=== PATIENT | female | born 1965 | race Caucasian/White ===

== ENCOUNTER 2017-01-20 05:17 | Inpatient (IN) | payer BC ==
[2017-01-20] MEDS ORDERED: ASPIRIN 81 MG CHEW PO STA (05:39)
[2017-01-20 05:54] LABS: Basophils # (A) 0.1 k/uL (0-0.2); Basophils % (A) 1 %; CHCM 33.2; Eosinophils # (A) 0.4 k/uL (0-0.7); Eosinophils % (A) 4 %; HCT 45.8 % (34.0-46.0); HDW 2.46; Luc # (Auto) 0.18; Luc % (Auto) 2; Lymphocytes # (A) 2.2 k/uL (1.0-4.8); Lymphocytes % (A) 20 %; MCH 28.7 pg (25.0-35.0); MCHC 32.6 g/dL (31.0-37.0); MCV 87.9 fL (80.0-100.0); Mean Platelet Volume 7.6; Monocytes # (A) 0.6 k/uL (0-1.0); Monocytes % (A) 6 %; Neutrophils # (A) 7.7 k/uL (1.3-7.7); Neutrophils % (A) 69 %; RBC 5.22 m/uL (3.80-5.40); RDW 13.8 % (11.5-15.5); WBC 11.2 k/uL (3.8-10.6); WBC (Perox) 11.02
[2017-01-20 06:03] LABS: ALT 49 U/L (9-52); AST 30 U/L (14-36); Alkaline Phosphatase 89 U/L (38-126); Anion Gap 11 mmol/L; Blood Urea Nitrogen 14 mg/dL (7-17); Calcium 9.3 mg/dL (8.4-10.2); Carbon Dioxide 23 mmol/L (22-30); Chloride 107 mmol/L (98-107); Glucose 109 mg/dL (74-99); Non-African American GFR(MDRD) >60 (>60 ml/min/1.73 sqM); Potassium 4.7 mmol/L (3.5-5.1); Sodium 141 mmol/L (137-145); Total Bilirubin 0.5 mg/dL (0.2-1.3); Total Protein 7.1 g/dL (6.3-8.2)
[2017-01-20] MEDS ORDERED: cloNIDine HCL 0.1 MG TAB PO STA ×2 (06:04→06:10)
[2017-01-20] MEDS ORDERED: KETOROLAC 30 MG/ML 1 ML VIAL IVP STA (06:10)
[2017-01-20 06:15] LABS: Partial Thromboplastin Time 23.4 sec (22.0-30.0); Prothrombin Time 10.2 sec (9.0-12.0)
[2017-01-20] MEDS: ONDANSETRON 4 MG/2 ML VIAL IVP STA (06:16)
--- NOTE | 2017-01-20 06:16 | ED ---
Chest Pain HPI - General Source: patient Mode of arrival: ambulatory Limitations: no limitations - History of Present Illness MD Complaint: chest pain Onset/Timin -: hour(s) Onset: during rest Pain Location: substernal Pain Radiation: back Severity: moderate Quality: aching, other (Like gas) Consistency: constant Improves With: nothing Worsens With: nothing Anginal Symptoms: nausea, vomiting Treatments Prior to Arrival: none <Dwight Brothers - Last Filed: 01/20/17 07:56> <Ino Rivera - Last Filed: 01/20/17 09:56> - General Chief Complaint: Chest Pain Stated Complaint: Chest Pain Time Seen by Provider: 01/20/17 05:26 - History of Present Illness Initial Comments: This patient is a 51-year-old woman who presents to be evaluated for substernal and epigastric pain that does radiate to her back. The pain came on yesterday late morning or early afternoon. She states that it feels like a gas pressure like she needed to belch. She had eaten pizza prior to this. The patient states that she comes in to be evaluated because the feeling has prevented her from sleeping tonight. She took some Tums, and she also took some other antacid and had vomiting after both of these medications. She denies other associated symptoms. Patient denies diaphoresis, dyspnea, palpitations, lightheadedness or syncope. (Dwight Brothers) - Related Data Home Medications Medication Instructions Recorded Confirmed No Known Home Medications [No 01/20/17 01/20/17 Known Home Medications] Allergies Allergy/AdvReac Type Severity Reaction Status Date / Time acetaminophen [From [place]] AdvReac Nausea & Verified 01/20/17 08:35 Vomiting hydrocodone [From [place]] AdvReac Nausea & Verified 01/20/17 08:35 Vomiting Review of Systems ROS Other: All systems not noted in ROS Statement are negative. Constitutional: Denies: fever, chills Respiratory: Denies: cough, dyspnea Cardiovascular: Reports: as per HPI, chest pain. Denies: palpitations, orthopnea, edema, syncope Gastrointestinal: Reports: abdominal pain, nausea, vomiting. Denies: diarrhea, constipation, hematemesis Genitourinary: Denies: dysuria Musculoskeletal: Denies: back pain Skin: Denies: rash Neurological: Denies: headache, weakness, numbness <Dwight Brothers - Last Filed: 01/20/17 07:56> ROS Other: All systems not noted in ROS Statement are negative. <Ino Rivera - Last Filed: 01/20/17 09:56> ROS Statement: Those systems with pertinent positive or pertinent negative responses have been documented in the HPI. EKG Findings - EKG Results: EKG: interpreted by ERMD, sinus rhythm, normal axis, normal QRS, normal ST/T, no acute changes EKG shows: bradycardia (Rate approximately 57 bpm) <Carlos EnriquecoryDwight Last Filed: 01/20/17 07:56> Past Medical History Past Medical History: GERD/Reflux History of Any Multi-Drug Resistant Organisms: None Reported Past Surgical History: Section Additional Past Surgical History / Comment(s): c-sect x 3 Past Psychological History: No Psychological Hx Reported Smoking Status: Never smoker Past Alcohol Use History: Rare Past Drug Use History: None Reported <Dwight Brothers - Last Filed: 01/20/17 07:56> General Exam Limitations: no limitations General appearance: alert, in no apparent distress, obese Head exam: Present: atraumatic, normocephalic, normal inspection Eye exam: Present: normal appearance. Absent: scleral icterus, conjunctival injection ENT exam: Present: normal oropharynx Neck exam: Present: normal inspection Respiratory exam: Present: normal lung sounds bilaterally, chest wall tenderness. Absent: respiratory distress, wheezes, rales, rhonchi, stridor, accessory muscle use, decreased breath sounds, prolonged expiratory Cardiovascular Exam: Present: regular rate, normal rhythm, normal heart sounds. Absent: systolic murmur, diastolic murmur, rubs, gallop GI/Abdominal exam: Present: soft, tenderness. Absent: distended, guarding, rebound, mass, pulsatile mass, hernia Extremities exam: Present: normal inspection, normal capillary refill. Absent: pedal edema, calf tenderness Back exam: Present: normal inspection. Absent: CVA tenderness (R), CVA tenderness (L) Neurological exam: Present: alert Skin exam: Present: warm, dry, intact, normal color. Absent: rash <ZevDwight - Last Filed: 01/20/17 07:56> Course <ZevDwight Last Filed: 01/20/17 07:56> <Ino Rivera - Last Filed: 01/20/17 09:56> Vital Signs 01/20/17 01/20/17 01/20/17 05:20 05:40 06:48 Temperature 97.6 F Pulse Rate 62 60 Respiratory 18 16 Rate Blood Pressure 201/87 216/104 150/76 O2 Sat by Pulse 98 98 Oximetry 01/20/17 09:47 Temperature Pulse Rate 51 L Respiratory 16 Rate Blood Pressure 97/50 O2 Sat by Pulse 97 Oximetry - Reevaluation(s) Reevaluation #1: 01/20/17 09:34 Abdominal ultrasound shows cholelithiasis with mild gallbladder wall thickening. CT scan of the abdomen and pelvis shows cholelithiasis with mildly distended gallbladder. Correlate for mild duodenitis, correlate for peptic ulcer disease. CT angina of the chest shows no evidence of pulmonary embolism. Pulmonary nodule. 1 view chest x-ray shows no acute process. 01/20/17 09:43 Patient reevaluated by myself, Dr. Rivera. Patient resting comfortably in bed stating discomfort is mild at this time rated 2/10. Patient states her discomfort was in the epigastric region and not up in the chest. Patient states it is more in the right side. Abdomen is soft with mild tenderness to the right upper quadrant. Patient was updated on results. 01/20/17 09:55 Patient was specifically updated regarding lung nodule and need for follow-up for this in the future with her primary care doctor. Patient does demonstrate understanding. Case was also discussed with Dr. Huynh who does recommend patient be admitted. Patient updated. (Ino Rivera) Disposition <Dwight Brothers - Last Filed: 01/20/17 07:56> Decision Time: 09:56 <Ino Rivera - Last Filed: 01/20/17 09:56> Clinical Impression: Cholelithiasis Disposition: ADMITTED IP TO THIS HOSP Referrals: None,Stated [Primary Care Provider] - 1-2 days
--- NOTE | 2017-01-20 06:58 | XR ---
EXAM: Single view of the chest. INDICATION: 51 year-old female chest pain. COMPARISON: None. FINDINGS: Single frontal view demonstrates a normal cardiomediastinal silhouette. Nonspecific elevation of the right hemidiaphragm. The lungs are clear. No focal consolidation, pneumothorax, or pleural effusions. The visualized osseous structures are within normal limits. IMPRESSION: No acute cardiopulmonary disease.
[2017-01-20] MEDS ORDERED: RX INFO: IV CONTRAST WAS GIVEN 1 EACH MISC MISCELLANE PRN (07:18)
--- NOTE | 2017-01-20 08:27 | CT ---
EXAMINATION TYPE: CT angio chest DATE OF EXAM: 01/20/2017 8:14 AM COMPARISON: NONE HISTORY: Chest pain, upper abd pain CT DLP: 2041.2 (CTA chest and CT abd pelvis) mGycm Automated exposure control for dose reduction was used. CONTRAST: CTA scan of the thorax is performed with IV Contrast, patient injected with 100 mL of Omnipaque 350, pulmonary embolism protocol. . FINDINGS: LUNGS: Correlate for COPD. Subsegmental changes at both lung bases posteriorly likely related to depe ndent atelectasis. There is mild basilar bronchiectasis. No pneumothorax or pleural effusion. In the right upper lobe there is a 8mm nodule on image 71 MEDIASTINUM: There is satisfactory enhancement of the pulmonary artery and its branches, there is no CT evidence for pulmonary embolism. There are no greater than 1 cm hilar or mediastinal lymph nodes. No pericardial effusion is seen. OTHER: Hypertrophic change of the spine. IMPRESSION: NO EVIDENCE OF PULMONARY EMBOLISM. 3 MM NODULE RIGHT UPPER LOBE. FOLLOW-UP [address] SCAN RECOMMENDED.
--- NOTE | 2017-01-20 08:32 | CT ---
EXAMINATION TYPE: CT abdomen pelvis w con DATE OF EXAM: 01/20/2017 COMPARISON: NONE HISTORY: Chest pain, upper abd pain CT DLP: 2041.2 (CTA chest and CT abd pelvis) mGycm Automated exposure control for dose reduction was used. CONTRAST: CT scan of the abdomen pelvis is performed with IV Contrast, patient injected with 100 mL of Omnipaqu e 350. FINDINGS- LUNG BASES- No significant abnormality is appreciated. LIVER/GB-the gallbladder is mildly distended and contains multiple gallstones. Suggestion of gallblad argenis wall thickening correlate for cholecystitis.. PANCREAS- No gross abnormality is seen. SPLEEN- No gross abnormality is seen. ADRENALS- No gross abnormality is seen. KIDNEYS/BLADDER- no hydronephrosis nephrolithiasis or renal mass. BOWEL- no bowel dilatation. Normal appendix. No inflammatory changes the duodenum. LYMPH NODES- No greater than 1cm abdominal or pelvic lymph nodes areappreciated. OSSEOUS STRUCTURES- No significant abnormality is seen. IMPRESSION- 1. Cholelithiasis with mildly distended gallbladder. Correlate for cholecystitis. 2. Correlate for mild duodenitis. Correlate for peptic ulcer disease.
--- NOTE | 2017-01-20 09:20 | US ---
EXAMINATION TYPE: US abdomen limited DATE OF EXAM: 01/20/2017 COMPARISON: NONE CLINICAL HISTORY: Pain, attention RUQ. EXAM MEASUREMENTS: Liver Length: 19.7 cm Gallbladder Wall: 0.4 cm CBD: 0.4 cm Right Kidney: 10.8 x 4.8 x 5.0 cm limited due to body habitus and bowel gas Pancreas: appears wnl Liver: Measures upper limits of normal and has increased echogenicity Gallbladder: multiple mobile echogenic focus noted, wall appears slightly thickened Evidence for sonographic Sim's sign: Yes CBD: appears wnl Right Kidney: appears wnl IMPRESSION: 1. Cholelithiasis with mild gallbladder wall thickening correlate for cholecystitis. 2. Increased echogenicity could represent fatty infiltration or hepatitis.
[2017-01-20] MEDS ORDERED: ONDANSETRON 4 MG/2 ML VIAL IVP PRN (09:56)
[2017-01-20] MEDS ORDERED: HYDROmorphone 1 MG/ML 1 ML SYRINGE IV PRN (09:56)
[2017-01-20] MEDS ORDERED: NALOXONE 0.4 MG/ML 1 ML VIAL IV PRN (09:56)
--- NOTE | 2017-01-20 10:52 | P.PN ---
Progress Note - Text Patient seen and evaluated. Recommend cholecystectomy. Recommend admission. Robotic approach to cholecystectomy reviewed.
[2017-01-20 11:00] VITALS: BMI 40.5
[2017-01-20] MEDS: SODIUM CHLORIDE 0.9% 1,000 ML IV SCH ×2 (11:11→23:58)
[2017-01-20] MEDS: AMPICILLIN-SULBACTAM 3 GM in SODIUM CHLORIDE 0.9% 100 ML IVPB SCH ×3 (11:56→23:57)
[2017-01-20] MEDS ORDERED: HEPARIN SODIUM,PORCINE 5,000 UNIT/ML 1 ML VIAL SQ ONE (13:23)
[2017-01-20] MEDS ORDERED: ceFAZolin 3 GM in SODIUM CHLORIDE 0.9% 100 ML IVPB ONE (13:30)
[2017-01-20] MEDS ORDERED: ACETAMINOPHEN IV (For NPO) 1,000 MG in EMPTY BAG 1 BAG IVPB ONE (13:30)
--- NOTE | 2017-01-20 19:07 | P.GSHP ---
History of Present Illness H&P Date: 01/20/17 Chief Complaint: Cholecystitis The patient is a 51-year-old female who presented to emergency room after developing atypical chest pain. She had a cardiac workup including diagnostic studies for her abdomen. Findings were consistent with symptomatic gallstones included thickened gallbladder wall consistent with cholecystitis. She presents for leukocytosis as well. Given her presentation, surgical intervention was advised hence her admission. - Review of Systems Comment: CONSTITUTIONAL: Denies any fever or chills. She is more than 100 pounds overweight. HEENT: Denies any trouble with vision, hearing or nosebleeds. No difficulty swallowing. LYMPHATIC: The patient denies any lumps and bumps around the neck. ENDOCRINE: Denies any thyroid disorders. Denies any blood sugar glucose intolerance. RESPIRATORY: Denies pneumonia. Denies any troubles with breathing or dyspnea on exertion. CARDIOVASCULAR: She presented with chest pain. No recent heart attacks. GASTROINTESTINAL: Has heart burn. No bright red blood per rectum. GENITOURINARY: Denies any blood in urine or increased urinary frequency. MUSCULOSKELETAL: Has occassional back pain, stiffness, joint arthritis. NEUROLOGIC: Denies any numbness or tingling along the distal extremities. No seizure disorders or headaches. PSYCHIATRIC: Denies depression or suidical ideation. HEMATOLOGIC: Denies any abnormal bleeding or bruising. Past Medical History Past Medical History: GERD/Reflux History of Any Multi-Drug Resistant Organisms: None Reported Past Surgical History: Section Additional Past Surgical History / Comment(s): c-sect x 3 Past Psychological History: No Psychological Hx Reported Smoking Status: Never smoker Past Alcohol Use History: Rare Past Drug Use History: None Reported - Past Family History Father Family Medical History: Hypertension Medications and Allergies Home Medications Medication Instructions Recorded Confirmed Type No Known Home Medications [No 01/20/17 01/20/17 History Known Home Medications] Allergies Allergy/AdvReac Type Severity Reaction Status Date / Time acetaminophen [From [place]] AdvReac Nausea & Verified 01/20/17 08:35 Vomiting hydrocodone [From [place]] AdvReac Nausea & Verified 01/20/17 08:35 Vomiting Surgical - Exam Vital Signs Temp Pulse Resp BP Pulse Ox 97.6 F 62 18 201/87 98 01/20/17 05:20 01/20/17 05:20 01/20/17 05:20 01/20/17 05:20 01/20/17 05:20 GENERAL: Well developed and in no acute distress. Pleasant. HEENT: No sclera icterus. Extraocular movements grossly intact. Moist buccal mucosa. Head is atraumatic, normocephalic. Hears conversational speech. No nasal drainage. NECK: Supple without lymphadenopathy. No JV distention. CHEST: Non-labored respirations and equal bilateral excursions. CARDIOVASCULAR: Regular rate and rhythm. Palpable 2+ radial pulses. ABDOMEN: Soft. Nondistended. Tender along the right upper quadrant with focal peritonitis. MUSCULOSKELETAL: No clubbing, cyanosis or edema. NEUROLOGIC: No focal or lateralizing signs. PSYCH: Appropriate affect. Alert and oriented to person, place and time. Results - Labs 01/20/17 05:33 01/20/17 05:33 Abnormal Lab Results - Last 24 Hours (Table) 01/20/17 01/20/17 01/20/17 Range/Units 05:33 05:33 05:33 WBC 11.2 H (3.8-10.6) k/uL D-Dimer 1.77 H (<0.60) mg/L FEU Glucose 109 H (74-99) mg/dL Diabetes panel 01/20/17 Range/Units 05:33 Sodium 141 (137-145) mmol/L Potassium 4.7 (3.5-5.1) mmol/L Chloride 107 (98-107) mmol/L Carbon Dioxide 23 (22-30) mmol/L BUN 14 (7-17) mg/dL Creatinine 0.90 (0.52-1.04) mg/dL Glucose 109 H (74-99) mg/dL Calcium 9.3 (8.4-10.2) mg/dL AST 30 (14-36) U/L ALT 49 (9-52) U/L Alkaline Phosphatase 89 (38-126) U/L Total Protein 7.1 (6.3-8.2) g/dL Albumin 4.3 (3.5-5.0) g/dL Calcium panel 01/20/17 Range/Units 05:33 Calcium 9.3 (8.4-10.2) mg/dL Albumin 4.3 (3.5-5.0) g/dL Pituitary panel 01/20/17 Range/Units 05:33 Sodium 141 (137-145) mmol/L Potassium 4.7 (3.5-5.1) mmol/L Chloride 107 (98-107) mmol/L Carbon Dioxide 23 (22-30) mmol/L BUN 14 (7-17) mg/dL Creatinine 0.90 (0.52-1.04) mg/dL Glucose 109 H (74-99) mg/dL Calcium 9.3 (8.4-10.2) mg/dL Adrenal panel 01/20/17 Range/Units 05:33 Sodium 141 (137-145) mmol/L Potassium 4.7 (3.5-5.1) mmol/L Chloride 107 (98-107) mmol/L Carbon Dioxide 23 (22-30) mmol/L BUN 14 (7-17) mg/dL Creatinine 0.90 (0.52-1.04) mg/dL Glucose 109 H (74-99) mg/dL Calcium 9.3 (8.4-10.2) mg/dL Total Bilirubin 0.5 (0.2-1.3) mg/dL AST 30 (14-36) U/L ALT 49 (9-52) U/L Alkaline Phosphatase 89 (38-126) U/L Total Protein 7.1 (6.3-8.2) g/dL Albumin 4.3 (3.5-5.0) g/dL - Imaging CT scan - abdomen: report reviewed, image reviewed CT scan - pelvis: report reviewed, image reviewed US - abdomen: report reviewed, image reviewed (Findings consistent with gallstones.) Assessment and Plan (1) Cholecystitis Status: Acute (2) Gallstones Status: Acute (3) Morbid obesity due to excess calories Status: Acute (4) BMI 40.0-44.9, adult Status: Acute (5) Right upper quadrant abdominal pain Status: Acute Plan: 1. The patient imaging were reviewed in detail whereby findings are consistent with acute cholecystitis. 2. Recommend inpatient admission greater than 2 nights. 3. Nothing by mouth after midnight. 4. Recommend laparoscopic cholecystectomy, possibly robotic technique. 5. DVT prophylaxis recommended. 6. Continue with antibiotics.
[2017-01-21] MEDS: AMPICILLIN-SULBACTAM 3 GM in SODIUM CHLORIDE 0.9% 100 ML IVPB SCH ×3 (05:59→18:58)
[2017-01-21] MEDS: PANTOPRAZOLE 40 MG/10 ML VIAL IV SCH (10:00)
[2017-01-21] MEDS: SODIUM CHLORIDE 0.9% 1,000 ML IV SCH ×2 (11:45)
[2017-01-21] MEDS ORDERED: IV FLUID CONTINUATION 600 ML IV ONE (16:17)
[2017-01-21] MEDS ORDERED: LIDOCAINE 1% 20 ML VIAL (10MG/ML) FOR IV START INTRADERMA ONE (16:20)
[2017-01-21] MEDS ORDERED: DEXAMETHASONE SOD PHOSPHATE 10 MG/ML 1 ML VIAL IV ONE (16:20)
[2017-01-21] MEDS: ONDANSETRON 4 MG/2 ML VIAL IVP STA (16:29)
[2017-01-21] MEDS ORDERED: LACTATED RINGERS 1,000 ML IV ONE (16:36)
[2017-01-22] MEDS: AMPICILLIN-SULBACTAM 3 GM in SODIUM CHLORIDE 0.9% 100 ML IVPB SCH ×5 (00:15→23:38)
[2017-01-22 06:38] LABS: Basophils % (A) 0 %; CH 29.3; Eosinophils # (A) 0.1 k/uL (0-0.7); Eosinophils % (A) 1 %; HCT 42.5 % (34.0-46.0); HDW 2.52; HGB 14.2 gm/dL (11.4-16.0); Luc # (Auto) 0.09; Luc % (Auto) 1; Lymphocytes # (A) 1.3 k/uL (1.0-4.8); Lymphocytes % (A) 11 %; MCH 28.9 pg (25.0-35.0); MCHC 33.3 g/dL (31.0-37.0); MCV 86.8 fL (80.0-100.0); Mean Platelet Volume 7.7; Monocytes # (A) 0.3 k/uL (0-1.0); Monocytes % (A) 2 %; Neutrophils # (A) 9.6 k/uL (1.3-7.7); Neutrophils % (A) 84 %; RDW 13.6 % (11.5-15.5); WBC 11.4 k/uL (3.8-10.6); WBC (Perox) 11.61
[2017-01-22 07:02] LABS: ALT 57 U/L (9-52); AST 36 U/L (14-36); Alkaline Phosphatase 83 U/L (38-126); Anion Gap 5 mmol/L; Blood Urea Nitrogen 15 mg/dL (7-17); Calcium 9.1 mg/dL (8.4-10.2); Carbon Dioxide 28 mmol/L (22-30); Chloride 107 mmol/L (98-107); Glucose 119 mg/dL (74-99); Non-African American GFR(MDRD) >60 (>60 ml/min/1.73 sqM); Potassium 4.4 mmol/L (3.5-5.1); Sodium 140 mmol/L (137-145); Total Bilirubin 0.4 mg/dL (0.2-1.3); Total Protein 6.6 g/dL (6.3-8.2)
--- NOTE | 2017-01-22 07:34 | P.PN ---
Progress Note - Text Patient seen and evaluated. Operating room delay explained. Patient reports no increased abdominal pain. Plan for laparoscopic cholecystectomy tomorrow.
[2017-01-22] MEDS ORDERED: ACETAMINOPHEN IV (For NPO) 1,000 MG in EMPTY BAG 1 BAG IVPB ONE ×2 (07:35→17:00)
[2017-01-22] MEDS ORDERED: HEPARIN SODIUM,PORCINE 5,000 UNIT/ML 1 ML VIAL SQ ONE (07:35)
--- NOTE | 2017-01-22 07:35 | P.HPADDEND ---
H&P Addendum H&P Addendum Date: 01/22/17 Patient still has elevated white blood cell count with history of right upper quadrant abdominal pain and gallstones consistent with cholecystitis. Robotic- assisted laparoscopic cholecystectomy reviewed
[2017-01-22] MEDS: PANTOPRAZOLE 40 MG/10 ML VIAL IV SCH (10:07)
[2017-01-22] MEDS ORDERED: IV FLUID CONTINUATION 1,000 ML IV ONE (13:18)
[2017-01-22] MEDS ORDERED: LACTATED RINGERS 1,000 ML IV ONE ×2 (13:20→15:17)
[2017-01-22] MEDS ORDERED: ONDANSETRON 4 MG/2 ML VIAL IVP ONE (14:40)
[2017-01-22] MEDS ORDERED: DEXAMETHASONE SOD PHOSPHATE 10 MG/ML 1 ML VIAL IV ONE (14:42)
[2017-01-22] MEDS ORDERED: BUPIVACAIN-EPI 0.25%-1:200,000 30 ML VIAL SQ ONE (14:46)
[2017-01-22] MEDS ORDERED: BUPIVACAIN-EPI 0.5%-1:200,000 30 ML VIAL SQ ONE (14:52)
[2017-01-22] MEDS ORDERED: fentaNYL (PF) 50 MCG/ML 2 ML AMP ONE (14:53)
[2017-01-22] MEDS ORDERED: PROPOFOL 10 MG/ML 20 ML VIAL IV ONE (14:53)
[2017-01-22] MEDS ORDERED: SUCCINYLCHOLINE CHLORIDE 100 MG/5 ML SYR IV ONE (14:53)
[2017-01-22] MEDS ORDERED: MIDAZOLAM 2 MG/2 ML VIAL ONE (14:53)
[2017-01-22] MEDS ORDERED: HYDROmorphone (PF) 1 MG/ML ONE (14:53)
[2017-01-22] MEDS ORDERED: LIDOCAINE 1% INJ 10MG/ML (20 ML MDV) ONE (14:53)
[2017-01-22] MEDS ORDERED: ROCURONIUM BROMIDE 10 MG/ML 10 ML VIAL IV ONE (14:53)
[2017-01-22] MEDS ORDERED: KETOROLAC 30 MG/ML 1 ML VIAL ONE (14:53)
[2017-01-22] MEDS: ceFAZolin 2 GM in SODIUM CHLORIDE 0.9% 100 ML IVPB ONE ×2 (14:59→15:00)
[2017-01-22] MEDS ORDERED: HYDROmorphone 1 MG/ML 1 ML SYRINGE IVP ONE ×2 (16:46→16:58)
--- NOTE | 2017-01-22 16:52 | P.PCN ---
Date of Procedure: 01/22/17 Preoperative Diagnosis: Acute cholecystitis Postoperative Diagnosis: Hydrops cholecystitis, acute cholecystitis with cystic duct obstruction secondary to gallstone, leukocytosis, right upper quadrant abdominal pain Procedure(s) Performed: Robotic-assisted laparoscopic cholecystectomy Implants: Anesthesia: GETA, local (30) Surgeon: Diana North Estimated Blood Loss (ml): 5 Pathology: other (Gallbladder) Condition: stable Disposition: floor Indications for Procedure: Operative Findings: Dilated 60.cast secondary to impacted gallstone. Hydrops cholecystitis confirmed. Minimal contamination during the case. Bile clear in color. Hepatic fossa completely hemostatic. Omental adhesions to good gallbladder infundibulum consistent with chronic cholecystitis as well. Description of Procedure:
[2017-01-22] MEDS ORDERED: MEPERIDINE 50 MG/ML SYRINGE IVP ONE (17:09)
[2017-01-22] MEDS: SODIUM CHLORIDE 0.9% 1,000 ML IV SCH ×2 (18:33→21:15)
[2017-01-22] MEDS: KETOROLAC 30 MG/ML 1 ML VIAL IVP SCH (21:18)
[2017-01-23] MEDS: SODIUM CHLORIDE 0.9% 1,000 ML IV SCH ×3 (02:58→08:30)
[2017-01-23] MEDS: KETOROLAC 30 MG/ML 1 ML VIAL IVP SCH ×3 (04:15→09:58)
[2017-01-23 06:04] LABS: Basophils % (A) 0 %; CH 29.1; CHCM 32.5; Eosinophils # (A) 0.2 k/uL (0-0.7); Eosinophils % (A) 1 %; HCT 39.1 % (34.0-46.0); HDW 2.39; HGB 12.4 gm/dL (11.4-16.0); Luc % (Auto) 1; Lymphocytes # (A) 1.5 k/uL (1.0-4.8); Lymphocytes % (A) 12 %; MCH 28.7 pg (25.0-35.0); MCHC 31.8 g/dL (31.0-37.0); MCV 90.3 fL (80.0-100.0); Monocytes # (A) 0.4 k/uL (0-1.0); Monocytes % (A) 4 %; Neutrophils % (A) 82 %; RBC 4.33 m/uL (3.80-5.40); WBC 12.3 k/uL (3.8-10.6); WBC (Perox) 12.65
[2017-01-23 06:19] LABS: ALT 70 U/L (9-52); AST 47 U/L (14-36); Alkaline Phosphatase 68 U/L (38-126); Anion Gap 10 mmol/L; Blood Urea Nitrogen 17 mg/dL (7-17); Calcium 8.4 mg/dL (8.4-10.2); Carbon Dioxide 22 mmol/L (22-30); Chloride 107 mmol/L (98-107); Glucose 112 mg/dL (74-99); Non-African American GFR(MDRD) >60 (>60 ml/min/1.73 sqM); Potassium 4.3 mmol/L (3.5-5.1); Sodium 139 mmol/L (137-145); Total Bilirubin 0.5 mg/dL (0.2-1.3); Total Protein 6.1 g/dL (6.3-8.2)
[2017-01-23] MEDS: AMPICILLIN-SULBACTAM 3 GM in SODIUM CHLORIDE 0.9% 100 ML IVPB SCH ×2 (06:47→11:32)
[2017-01-23] MEDS: PANTOPRAZOLE 40 MG/10 ML VIAL IV SCH (08:30)
[2017-01-23 09:57] VITALS: BP 137/61; PULSE 62; RESP 16; TEMP 97.4
--- NOTE | 2017-01-23 14:04 | P.DS ---
Providers Date of admission: 01/20/17 09:56 Expected date of discharge: 01/23/17 Attending physician: Diana North Primary care physician: Stated None Hospital Course: The patient is a 51-year-old female who presented to emergency room after developing atypical chest pain. Patient stated the pain came on earlier in the day. She stated it felt like a gas pressure like she needed to belch. She had eaten pizza prior to the episode. Patient came into the emergency room for the following symptoms. She stated that before coming and she did take some Tums and some antacids felt like she vomited after taking both of these medication. CAT scan of the abdomen pelvis shows cholelithiasis with mildly distended gallbladder. Additionally patient had a CAT scan of the chest show no evidence of a pulmonary emboli. Patient stated the pain was more on the right side with tenderness in the abdominal wall the right upper quadrant given the above clinical presentation Dr. Huynh did discuss with the patient surgical approach to treat the acute cholecystitis patient elected to proceed and on January 22 did undergo robotic-assisted laparoscopic cholecystectomy. For treatment of hydrops cholecystitis, with cystic duct obstruction secondary to gallstone on admission the white count was 11.2 on the day of discharge 12.3. Patient surgical sites no signs of redness patient is afebrile passing gas tolerating diet anxious to be discharged home Impression discharge diagnosis Present on admission right upper quadrant abdominal pain suspect due to acute cholecystitis Present on admission elevated d-dimer with a CAT scan of the chest showing no evidence of a pulmonary emboli Present on admission leukocytosis with right upper quadrant abdominal pain with gallstones consistent with cholecystitis Morbid obesity BMI 40 The above dictated assessment and findings were discussed with dr North. Impression and the plan of care have been dictated as directed. Heidy Peoples nurse practitioner acting as a scribe for Dr. North Plan - Discharge Summary New Discharge Prescriptions: New Amoxic-Pot Clav 875-125Mg [Augmentin 875-125] 1 tab PO Q12HR #14 tablet Discharge Medication List Amoxic-Pot Clav 875-125Mg [Augmentin 875-125] 1 tab PO Q12HR #14 tablet [Rx] Follow up Appointment(s)/Referral(s): None,Stated [Primary Care Provider] - 1-2 days Diana North MD [STAFF PHYSICIAN] - 01/24/17 Activity/Diet/Wound Care/Special Instructions: No heavy lifting over 10 pounds May shower No sitting in a hot tub or swimming pool for one week Discharge Disposition: HOME SELF-CARE
--- NOTE | 2017-02-04 15:04 | P.OP ---
Date of Procedure: 01/22/17 Preoperative Diagnosis: Postoperative Diagnosis: Procedure(s) Performed: Implants: Indications for Procedure: Operative Findings: Description of Procedure: SURGEON: DESIREE MCKEE MD FLAME DEGREASER: Mago Real PREOPERATIVE DIAGNOSES: 1. Acute cholecystitis. 2. Family history of gallbladder disease. 3. Morbid obesity due to excess calories. 4. Body mass index 40.5. 5. Symptomatic gallstones. 6. Right upper quadrant abdominal pain. 7. Gastroesophageal reflux disease. 8. Leukocytosis. POSTOPERATIVE DIAGNOSES: 1. Acute cholecystitis with cystic duct obstruction secondary to gallstone 2. Family history of gallbladder disease. 3. Morbid obesity due to excess calories. 4. Body mass index 40.5. 5. Symptomatic gallstones. 6. Right upper quadrant abdominal pain. 7. Hydrops cholecystitis. 8. Leukocytosis. OPERATION: Robotic-assisted laparoscopic cholecystectomy, multiport ANESTHESIA: Gen. and local anesthetic. ESTIMATED BLOOD LOSS: 5 mL. SPECIMENS REMOVED: Gallbladder. COMPLICATIONS: None. OPERATIVE FINDINGS: 1. Dilated cystic duct secondary to impacted gallstone. 2. Hydrops cholecystitis confirmed. 3. Minimal contamination during the case. 4. Bile clear in color. 5. Hepatic fossa completely hemostatic. 6. Omental adhesions to gallbladder infundibulum consistent with chronic cholecystitis as well. INDICATIONS: The patient is a 51-year-old female who presents with symptomatic gallstones and acute cholelcystitis. Surgical intervention with a laparoscopic cholecystectomy was described at length including injury to the biliary tree, bleeding, infection, need for further surgery. Informed consent was obtained. Robotic assisted laparoscopic approach was described. Benefits and risks of the procedure including but not limited to bleeding, infection, injury to the biliary tree was described. Informed consent was obtained. DESCRIPTION OF PROCEDURE: Patient was brought to the operating room, placed in supine position. After general induction, the abdomen had been prepped and draped in standard sterile fashion. The robotic da Arun SI system was primed. After a timeout protocol was performed, the patient had been prepped and draped in standard sterile fashion. The robot was docked above the patient. The patient was repositioned in reverse Trendelenburg position. Please note prior to docking of the robot; however, a 5 mm 0 degrees laparoscopic trocar entry was performed along the left upper quadrant. Next, two 8 mm robotic ports were placed along the right upper abdomen. The camera 12-mm port was maintained along the epigastrium. Another 8 mm port was placed along the left upper abdominal wall after exchanging the 5 mm port. Please note that the ports were placed at least 10 to 15 cm away from the target anatomy of the gallbladder. Using a grasper for arm 3, a grasper for arm 2, including hook cautery for arm 1 , the robotic system was docked and primed as described. Instruments were interchanged by the assistant chief nursing officer including hook cautery, Bovie cautery, scissors and clip appliers. I had sat at the console. Adhesions were identified along the infundibulum of the gallbladder and addressed using hook cautery including blunt dissection with a long forceps grasper. The gallbladder fundus was retracted over the dome of the liver. Initial attention was brought to the infundibulum which was gently retracted in the inferior lateral approach. Using a long forceps grasper, the cystic duct including the cystic artery was carefully skeletonized. Using a clip mobile nurse 2 clips were placed proximally, and 2 clip was placed distally along the cystic duct and then cut with scissors. Again care was taken to avoid any injury to the biliary tree as the common bile duct was clearly visualized during this portion of dissection. Next, the cystic artery was clipped twice proximally, once distally and then cauterized the cut. Electro-Bovie cautery was used to remove the gallbladder from the hepatic fossa without decompression of the gallbladder. Hemostasis was checked and found to be adequate. The robot was undocked. I re-scrubbed into the case. Using a 10 mm Endo Catch bag via the 12 mm port, the specimen was removed from the abdominal cavity. The 12 mm port site was oversewn using 0 Vicryl including a Ernesto Meier as well. All pneumoperitoneum instruments were evacuated from the abdominal cavity. The incisions were reapproximated using 4-0 Monocryl in an interrupted subcuticular fashion. Please note along the trocar sites, local anesthetic was placed as a field block prior to insertion of all instruments. Dermabond was applied to the skin. Optifoam was placed at the epigastric trocar site. At the end of the procedure needle, sponge, and instrument count had been verified correct by the architecture technician. The patient was transferred to postanesthesia care unit in stable condition.
--- NOTE | 2017-02-04 15:08 | P.PN ---
Subjective Principal diagnosis: Acute cholecystitis The patient is a 51-year-old female who presents with history of acute cholecystitis. Despite antibiotics, she continues to have leukocytosis and right upper quadrant abdominal pain. Objective - Vital Signs Vital signs: Vital Signs Temp 97.1 F L 01/22/17 04:30 Pulse 95 01/22/17 04:30 Resp 16 01/22/17 04:30 BP 106/46 01/22/17 04:30 Pulse Ox 95 01/22/17 04:30 Intake & Output 01/21/17 01/22/17 01/22/17 18:59 06:59 18:59 Intake Total 200 Balance 200 Intake: IV 200 - Exam GENERAL: Well developed and in no acute distress. Pleasant. HEENT: No sclera icterus. Extraocular movements grossly intact. Moist buccal mucosa. Head is atraumatic, normocephalic. Hears conversational speech. No nasal drainage. NECK: Supple without lymphadenopathy. No JV distention. CHEST: Non-labored respirations and equal bilateral excursions. CARDIOVASCULAR: Regular rate and rhythm. Palpable 2+ radial pulses. ABDOMEN: Soft, tender along right upper quadrant. MUSCULOSKELETAL: No clubbing, cyanosis or edema. NEUROLOGIC: No focal or lateralizing signs. PSYCH: Appropriate affect. Alert and oriented to person, place and time. - Labs CBC & Chem 7: 01/23/17 05:50 01/23/17 05:50 Labs: Abnormal Lab Results - Last 24 Hours (Table) 01/22/17 01/22/17 Range/Units 06:19 06:19 WBC 11.4 H (3.8-10.6) k/uL Neutrophils # 9.6 H (1.3-7.7) k/uL Glucose 119 H (74-99) mg/dL ALT 57 H (9-52) U/L Assessment and Plan (1) Cholecystitis Status: Acute (2) Gallstones Status: Acute (3) Morbid obesity due to excess calories Status: Acute (4) BMI 40.0-44.9, adult Status: Acute (5) Right upper quadrant abdominal pain Status: Acute Plan: 1. Continue with IV antibiotics. 2. Nothing by mouth after midnight. 3. Given the patient's risks, recommend robotic approach for cholecystectomy.
== END 2017-01-23 16:00 | disposition home or self-care (01) | DRG 418 ==
LOC: EC 05:17 → 6PED 09:56
PROVIDERS: ADMIT Surgery Plastic and Reconstructive Surgery; ATTEND Surgery Plastic and Reconstructive Surgery
PROC: 8E0W4CZ Robotic Assisted Procedure of Trunk Region, Percutaneous Endoscopic Approach (ICD-10-PCS; 2017-01-22)
PROC: 0FT44ZZ Resection of Gallbladder, Percutaneous Endoscopic Approach (ICD-10-PCS; principal; 2017-01-22 09:55)
DX: K80.67 Calculus of gallbladder and bile duct with acute and chronic cholecystitis with obstruction (principal); K82.1 Hydrops of gallbladder; Z68.41 Body mass index [BMI] 40.0-44.9, adult; E66.01 Morbid (severe) obesity due to excess calories; K21.9 Gastro-esophageal reflux disease without esophagitis; K66.0 Peritoneal adhesions (postprocedural) (postinfection)
CPT/HCPCS: 36415; 71010; 71275; 74177; 76705; 80053; 81025; 83735; 84484; 85025; 85379; 85610; 85730; 88304; 93005; 96374; 96375; 99285